=== PATIENT | male | born 1965 | race Caucasian/White ===

== ENCOUNTER 2018-02-23 21:38 | Inpatient (IN) | payer OTHER ==
[2018-02-23] MEDS ORDERED: PANTOPRAZOLE 40 MG/10 ML VIAL IVP STA (23:25)
[2018-02-23] MEDS ORDERED: SODIUM CHLORIDE 0.9% 1,000 ML IV STA (23:25)
[2018-02-23 23:53] LABS: Anisocytosis Moderate; Hypochromasia Marked; MCH 17.4 pg (25.0-35.0); MCHC 25.8 g/dL (31.0-37.0); MCV 67.4 fL (80.0-100.0); Mean Platelet Volume 9.4; Microcytosis Marked; Platelet Count 132 k/uL (150-450); Poikilocytosis Slight; RBC 2.27 m/uL (4.30-5.90); RDW 20.6 % (11.5-15.5); WBC 3.3 k/uL (3.8-10.6)
[2018-02-23 23:59] LABS: HCT 15.3 % (39.0-53.0); HGB 3.9 gm/dL (13.0-17.5)
[2018-02-24 00:04] LABS: ALT 43 U/L (21-72); AST 67 U/L (17-59); Albumin 3.3 g/dL (3.5-5.0); Alkaline Phosphatase 48 U/L (38-126); Amylase 57 U/L (30-110); Anion Gap 7 mmol/L; Blood Urea Nitrogen 13 mg/dL (9-20); Calcium 8.2 mg/dL (8.4-10.2); Carbon Dioxide 23 mmol/L (22-30); Chloride 107 mmol/L (98-107); Glucose 115 mg/dL (74-99); Lipase 298 U/L (23-300); Potassium 4.1 mmol/L (3.5-5.1); Sodium 137 mmol/L (137-145); Total Bilirubin 0.4 mg/dL (0.2-1.3); Total Protein 7.3 g/dL (6.3-8.2)
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
[2018-02-24 00:39] LABS: Basophils # (M) 0.03 k/uL (0-0.2); Eosinophils # (M) 0.03 k/uL (0-0.7); Lymphocytes # (M) 0.92 k/uL (1.0-4.8); Monocytes # (M) 0.26 k/uL (0-1.0); Neutrophils # (M) 2.05 k/uL (1.3-7.7); Neutrophils % (M) 62 %; Nucleated Red Blood Cells 0 /100 WBC (0-0); Total Cells Counted 100
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
[2018-02-24 00:40] LABS: Large Platelets Present; Ovalocytes Present; Tear Drop Cells Present
[2018-02-24 00:48] LABS: INR 1.3 (<1.2); Prothrombin Time 12.4 sec (9.0-12.0)
[2018-02-24] MEDS ORDERED: ONDANSETRON 4 MG/2 ML VIAL IVP PRN (00:57)
[2018-02-24] MEDS ORDERED: NALOXONE 0.4 MG/ML 1 ML VIAL IV PRN (00:57)
[2018-02-24 02:20] LABS: Appearance,Urine Clear (Clear); Bilirubin,Urine Negative (Negative); Blood,Urine Negative (Negative); Color,Urine Colorless; Glucose,Urine (UA) Negative (Negative); Ketones,Urine Negative (Negative); Leukocyte Esterase,Urine Negative (Negative); Nitrite,Urine Negative (Negative); Protein,Urine Negative (Negative); Specific Gravity,Urine 1.003 (1.001-1.035); Urobilinogen,Urine <2.0 mg/dL (<2.0)
[2018-02-24] MEDS: SODIUM CHLORIDE 0.9% 1,000 ML IV SCH ×2 (04:57→17:17)
[2018-02-24 07:46] LABS: Anisocytosis Moderate; Basophils % (A) 0 %; Eosinophils % (A) 1 %; Hypochromasia Marked; Lymphocytes # (A) 0.7 k/uL (1.0-4.8); Lymphocytes % (A) 26 %; MCHC 26.6 g/dL (31.0-37.0); MCV 67.7 fL (80.0-100.0); Mean Platelet Volume 9.5; Microcytosis Marked; Monocytes # (A) 0.2 k/uL (0-1.0); Monocytes % (A) 7 %; Neutrophils # (A) 1.7 k/uL (1.3-7.7); Neutrophils % (A) 62 %; Platelet Count 139 k/uL (150-450); Poikilocytosis Marked; RBC 2.45 m/uL (4.30-5.90); RDW 21.2 % (11.5-15.5); WBC 2.8 k/uL (3.8-10.6)
[2018-02-24 07:51] LABS: HCT 16.6 % (39.0-53.0); HGB 4.4 gm/dL (13.0-17.5)
[2018-02-24] MEDS ORDERED: PANTOPRAZOLE 40 MG/10 ML VIAL IV SCH (09:00)
[2018-02-24] MEDS ORDERED: LORazepam 0.5 MG TAB PO PRN ×2 (12:49→13:59)
[2018-02-24] MEDS ORDERED: MIRTAZAPINE 15 MG TAB PO PRN (13:57)
[2018-02-24] MEDS ORDERED: HYOSCYAMINE SULFATE 0.125 MG TAB PO PRN (13:57)
[2018-02-24] MEDS ORDERED: TRIMETHOBENZAMIDE 300 MG CAP PO PRN (13:57)
[2018-02-24] MEDS ORDERED: cloNIDine HCL 0.1 MG TAB PO PRN (13:57)
[2018-02-24] MEDS ORDERED: LOPERAMIDE 2 MG CAP PO PRN (13:57)
[2018-02-24] MEDS ORDERED: TEMAZEPAM 15 MG CAP PO PRN (13:59)
--- NOTE | 2018-02-24 14:35 | XR ---
EXAMINATION TYPE: XR chest 1V portable DATE OF EXAM: 02/24/2018 COMPARISON: NONE HISTORY: Heart failure. Short of breath TECHNIQUE: Single frontal view of the chest is obtained. FINDINGS: Heart is enlarged. There is no heart failure. Lungs are clear of infiltrate. There is no p leural effusion. There are chest leads. IMPRESSION: Cardiomegaly. No active cardiopulmonary disease.
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
[2018-02-24] MEDS: PANTOPRAZOLE 40 MG/10 ML VIAL IV SCH (21:28)
[2018-02-24] MEDS: TEMAZEPAM 15 MG CAP PO PRN (22:15)
[2018-02-24 22:22] LABS: Anisocytosis Moderate; Basophils % (A) 0 %; Eosinophils # (A) 0.1 k/uL (0-0.7); Eosinophils % (A) 2 %; Hypochromasia Marked; Lymphocytes # (A) 0.9 k/uL (1.0-4.8); Lymphocytes % (A) 26 %; MCH 21.7 pg (25.0-35.0); MCHC 29.8 g/dL (31.0-37.0); Mean Platelet Volume 7.8; Microcytosis Marked; Monocytes # (A) 0.2 k/uL (0-1.0); Monocytes % (A) 7 %; Neutrophils # (A) 2.1 k/uL (1.3-7.7); Neutrophils % (A) 62 %; Poikilocytosis Marked; RBC 3.16 m/uL (4.30-5.90); RDW 21.6 % (11.5-15.5); WBC 3.4 k/uL (3.8-10.6)
[2018-02-24 22:24] LABS: HGB 6.9 gm/dL (13.0-17.5); MCV 72.9 fL (80.0-100.0)
[2018-02-24 22:47] LABS: Poikilocytosis (M) Present; Polychromasia Present; Target Cells Present
[2018-02-25] MEDS: SODIUM CHLORIDE 0.9% 1,000 ML IV SCH (02:42)
[2018-02-25 06:28] LABS: Anisocytosis Moderate; Basophils % (A) 0 %; Eosinophils # (A) 0.1 k/uL (0-0.7); Eosinophils % (A) 2 %; HCT 26.9 % (39.0-53.0); Hypochromasia Marked; Lymphocytes # (A) 0.7 k/uL (1.0-4.8); Lymphocytes % (A) 18 %; MCH 21.5 pg (25.0-35.0); MCHC 29.9 g/dL (31.0-37.0); Mean Platelet Volume 8.7; Microcytosis Marked; Monocytes # (A) 0.4 k/uL (0-1.0); Monocytes % (A) 11 %; Neutrophils # (A) 2.7 k/uL (1.3-7.7); Neutrophils % (A) 67 %; Poikilocytosis Marked; RBC 3.74 m/uL (4.30-5.90); RDW 21.5 % (11.5-15.5)
[2018-02-25 06:30] LABS: ALT 56 U/L (21-72); AST 91 U/L (17-59); Albumin 3.1 g/dL (3.5-5.0); Alkaline Phosphatase 41 U/L (38-126); Anion Gap 8 mmol/L; Calcium 8.4 mg/dL (8.4-10.2); Carbon Dioxide 19 mmol/L (22-30); Chloride 111 mmol/L (98-107); Glucose 121 mg/dL (74-99); Sodium 138 mmol/L (137-145); Total Bilirubin 1.1 mg/dL (0.2-1.3); Total Protein 7.2 g/dL (6.3-8.2)
[2018-02-25 06:34] LABS: Blood Urea Nitrogen 13 mg/dL (9-20); Potassium 4.8 mmol/L (3.5-5.1)
[2018-02-25 06:58] LABS: Platelet Count 32 k/uL (150-450)
[2018-02-25 06:59] LABS: Polychromasia Present
[2018-02-25 07:01] LABS: Tear Drop Cells Present
[2018-02-25 07:02] LABS: Large Platelets Present; Mixed Population RBC Present
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
[2018-02-25] MEDS: NICOTINE 14MG/24HR PATCH TRANSDERM SCH (08:16)
[2018-02-25] MEDS: PANTOPRAZOLE 40 MG/10 ML VIAL IV SCH ×2 (08:17→21:05)
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
[2018-02-25 11:34] LABS: Reticulocyte % 2.3 % (0.5-2.0)
[2018-02-25] MEDS ORDERED: BISACODYL 5 MG TABLET.DR PO STA (14:54)
[2018-02-25 15:00] VITALS: BMI 26.5
[2018-02-25 16:35] LABS: Iron Saturation 6.02 (15.00-50.00); Rheumatoid Factor 10 IU/mL (0-15)
[2018-02-25] MEDS ORDERED: PEG 3350-NA SULF,BICARB,CL/KCL 4,000 ML BOTTLE PO ONE (17:00)
[2018-02-25 17:47] LABS: HIV AB P24 Non-Reactive (Non-Reactive); HIV P24 AG Non-Reactive (Non-Reactive)
--- NOTE | 2018-02-25 18:57 | P.PN ---
Subjective Progress Note Date: 02/25/18 Principal diagnosis: Iron deficiency anemia, melena The patient reports feeling better after receiving blood transfusions. Tolerating diet. No melanotic stool on this admission so far. Objective - Vital Signs Vital signs: Vital Signs Temp 96.6 F L 02/25/18 12:00 Pulse 73 02/25/18 12:00 Resp 18 02/25/18 12:00 BP 121/81 02/25/18 12:00 Pulse Ox 96 02/25/18 12:00 Intake & Output 02/24/18 02/25/18 02/25/18 18:59 06:59 18:59 Intake Total 1340 1670 684 Output Total 1950 3325 900 Balance -610 -1655 -216 Weight 79.1 kg 79.1 kg Intake: Oral 720 740 684 Blood Product 620 930 Rc As-1 Unit 310 [id number] Rc As-1 Unit 310 [id number] Rc As-1 Unit 310 [id number] Rc As-1 Unit 0 310 [id number] Output: Urine 1950 3325 900 Other: Voiding Method Urinal Urinal # Voids 2 - Exam On physical examination, patient appears comfortable in no apparent distress. Vital signs are stable. HEENT: Unremarkable. Conjunctivae pink. Sclerae anicteric. Oral cavity no lesions. NECK: No JVD or lymph node enlargement. CHEST: Clear to auscultation. HEART: Regular rate and rhythm. ABDOMEN: Soft. Bowel sounds are positive. No organomegaly. EXTREMITIES: No pedal edema. SKIN: No rashes. NEUROLOGIC: Alert and oriented x3. No focal deficits. - Labs CBC & Chem 7: 02/25/18 05:31 02/25/18 05:31 Labs: Abnormal Lab Results - Last 24 Hours (Table) 02/24/18 02/24/18 02/25/18 Range/Units 00:21 22:04 05:31 WBC 3.4 L (3.8-10.6) k/uL RBC 3.16 L (4.30-5.90) m/uL Hgb 6.9 L* D (13.0-17.5) gm/dL Hct 23.0 L (39.0-53.0) % MCV 72.9 L D (80.0-100.0) fL MCH 21.7 L (25.0-35.0) pg MCHC 29.8 L (31.0-37.0) g/dL RDW 21.6 H (11.5-15.5) % Plt Count (150-450) k/uL Lymphocytes # 0.9 L (1.0-4.8) k/uL Retic Count (0.5-2.0) % Chloride 111 H (98-107) mmol/L Carbon Dioxide 19 L (22-30) mmol/L Glucose 121 H (74-99) mg/dL Iron (65-175) ug/dL Iron Saturation (15.00-50.00) Ferritin (22.0-322.0) ng/mL AST 91 H (17-59) U/L Albumin 3.1 L (3.5-5.0) g/dL Crossmatch See Detail 02/25/18 02/25/18 02/25/18 Range/Units 05:31 10:35 10:35 WBC (3.8-10.6) k/uL RBC 3.74 L (4.30-5.90) m/uL Hgb 8.0 L (13.0-17.5) gm/dL Hct 26.9 L (39.0-53.0) % MCV 72.0 L (80.0-100.0) fL MCH 21.5 L (25.0-35.0) pg MCHC 29.9 L (31.0-37.0) g/dL RDW 21.5 H (11.5-15.5) % Plt Count 32 L* D (150-450) k/uL Lymphocytes # 0.7 L (1.0-4.8) k/uL Retic Count 2.3 H (0.5-2.0) % Chloride (98-107) mmol/L Carbon Dioxide (22-30) mmol/L Glucose (74-99) mg/dL Iron 24 L (65-175) ug/dL Iron Saturation 6.02 L (15.00-50.00) Ferritin 5.4 L (22.0-322.0) ng/mL AST (17-59) U/L Albumin (3.5-5.0) g/dL Crossmatch Assessment and Plan (1) Anemia Narrative/Plan: Microcytic anemia with iron studies suggestive of a deficiency, this is likely secondary to GI blood loss given the patient's reports of melanotic stool. Less likely hematologic process, sequela of hepatitis C or other etiology. Current Visit: Yes Status: Acute Code(s): D64.9 - ANEMIA, UNSPECIFIED SNOMED Code(s): 192898061 (2) GI bleed Narrative/Plan: Reports of melanotic stools on and off for weeks. Denies any gross blood per rectum. Current Visit: Yes Status: Acute Code(s): K92.2 - GASTROINTESTINAL HEMORRHAGE, UNSPECIFIED SNOMED Code(s): 39225317 (3) History of hepatitis C Narrative/Plan: Treatment obi hepatitis C. Currently undergoing rehabilitation therapy for active drug use. Current Visit: Yes Status: Acute Code(s): Z86.19 - PERSONAL HISTORY OF OTHER INFECTIOUS AND PARASITIC DISEASES SNOMED Code(s): 98552687224508 Plan: Supportive care -Liquid diet, nothing by mouth after midnight EGD and colonoscopy tomorrow Iron supplementation Monitor hemoglobin and hematocrit and transfuse as needed Outpatient follow-up for evaluation and treatment of hepatitis C Thank you for allowing us to participate in the care of this patient we'll continue to follow
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
[2018-02-25] MEDS: TEMAZEPAM 15 MG CAP PO PRN (22:32)
[2018-02-26 06:18] LABS: Anisocytosis Moderate; Basophils % (A) 1 %; Eosinophils # (A) 0.1 k/uL (0-0.7); Eosinophils % (A) 1 %; HCT 28.8 % (39.0-53.0); HGB 8.3 gm/dL (13.0-17.5); Hypochromasia Marked; Lymphocytes # (A) 0.8 k/uL (1.0-4.8); Lymphocytes % (A) 21 %; MCH 21.4 pg (25.0-35.0); MCHC 28.9 g/dL (31.0-37.0); Mean Platelet Volume 9.4; Microcytosis Marked; Monocytes # (A) 0.3 k/uL (0-1.0); Monocytes % (A) 7 %; Neutrophils # (A) 2.5 k/uL (1.3-7.7); Neutrophils % (A) 67 %; Poikilocytosis Marked; RBC 3.88 m/uL (4.30-5.90); RDW 22.1 % (11.5-15.5); WBC 3.7 k/uL (3.8-10.6)
[2018-02-26 06:19] LABS: Platelet Count 123 k/uL (150-450)
[2018-02-26 06:21] LABS: Anion Gap 10 mmol/L; Blood Urea Nitrogen 10 mg/dL (9-20); Calcium 8.5 mg/dL (8.4-10.2); Carbon Dioxide 19 mmol/L (22-30); Chloride 111 mmol/L (98-107); Glucose 92 mg/dL (74-99); Potassium 4.3 mmol/L (3.5-5.1); Sodium 140 mmol/L (137-145)
[2018-02-26 06:32] LABS: Ovalocytes Present; Target Cells Present
[2018-02-26] MEDS: NICOTINE 14MG/24HR PATCH TRANSDERM SCH (08:49)
[2018-02-26] MEDS: PANTOPRAZOLE 40 MG/10 ML VIAL IV SCH (08:50)
[2018-02-26 09:05] VITALS: RESP 17
--- NOTE | 2018-02-26 12:43 | P.PN ---
Subjective Progress Note Date: 02/26/18 Principal diagnosis: Microcytic, hypochromic anemia Pt seen in f/u, he is awaiting endoscopy procedures this AM. He denies nausea, bleeding or pain. Objective - Vital Signs Vital signs: Vital Signs Temp 97 F L 02/26/18 08:20 Pulse 80 02/26/18 08:20 Resp 17 02/26/18 08:20 BP 125/83 02/26/18 08:20 Pulse Ox 97 02/26/18 08:20 Intake & Output 02/25/18 02/26/18 02/26/18 18:59 06:59 18:59 Intake Total 684 Output Total 900 Balance -216 Weight 79.1 kg 76.2 kg Intake: Oral 684 Output: Urine 900 Other: Voiding Method Urinal Toilet # Voids 1 # Bowel Movements 1 - Exam WDWN, laying in bed, NAD, pt is independently mobile, respirations even and unlabored, BS +, no abd distension, lower extremity swelling - Labs CBC & Chem 7: 02/26/18 05:45 02/26/18 05:45 Labs: Abnormal Lab Results - Last 24 Hours (Table) 02/25/18 02/25/18 02/26/18 Range/Units 10:35 10:35 05:45 WBC 3.7 L (3.8-10.6) k/uL RBC 3.88 L (4.30-5.90) m/uL Hgb 8.3 L (13.0-17.5) gm/dL Hct 28.8 L (39.0-53.0) % MCV 74.0 L (80.0-100.0) fL MCH 21.4 L (25.0-35.0) pg MCHC 28.9 L (31.0-37.0) g/dL RDW 22.1 H (11.5-15.5) % Plt Count 123 L D (150-450) k/uL Lymphocytes # 0.8 L (1.0-4.8) k/uL Chloride (98-107) mmol/L Carbon Dioxide (22-30) mmol/L Iron 24 L (65-175) ug/dL Iron Saturation 6.02 L (15.00-50.00) Ferritin 5.4 L (22.0-322.0) ng/mL RBC Folate 1,633 H (280 - 791) ng/mL 02/26/18 Range/Units 05:45 WBC (3.8-10.6) k/uL RBC (4.30-5.90) m/uL Hgb (13.0-17.5) gm/dL Hct (39.0-53.0) % MCV (80.0-100.0) fL MCH (25.0-35.0) pg MCHC (31.0-37.0) g/dL RDW (11.5-15.5) % Plt Count (150-450) k/uL Lymphocytes # (1.0-4.8) k/uL Chloride 111 H (98-107) mmol/L Carbon Dioxide 19 L (22-30) mmol/L Iron (65-175) ug/dL Iron Saturation (15.00-50.00) Ferritin (22.0-322.0) ng/mL RBC Folate (280 - 791) ng/mL Assessment and Plan (1) Hypochromic-microcytic anemia Narrative/Plan: Parenteral iron supplementation daily while inpatient. PO iron Erx to [facility] pharmacy for outpatient. Pt instructed to establish with a PCP as Hematology will only be managing blood problems. CBC should be followed every 1-2 weeks to ensure recovery of Hgb. Iron studies need to be reevaluated in 1 mo to evaluate adequacy of PO supplementation. Endoscopy today, pending results Current Visit: Yes Status: Acute Priority: High Code(s): D50.9 - IRON DEFICIENCY ANEMIA, UNSPECIFIED SNOMED Code(s): 15110414 (2) Thrombocytopenia Narrative/Plan: [place] dilutional secondary to massive PRBC transfusions, platelets recovered today Current Visit: Yes Status: Acute Priority: Medium Code(s): D69.6 - THROMBOCYTOPENIA, UNSPECIFIED SNOMED Code(s): 002968643 Plan: Reviewed with pt other lab results: autoimmune labs negative, negative HIV status. Pt states he does not share needles and is not currently sexually active.
[2018-02-26] MEDS ORDERED: SODIUM FERRIC GLUCONAT-SUCROSE 125 MG in SODIUM CHLORIDE 0.9% 100 ML IVPB SCH (13:00)
[2018-02-26] MEDS ORDERED: IV FLUID CONTINUATION 300 ML IV ONE (13:00)
--- NOTE | 2018-02-26 14:23 | P.PCN ---
Date of Procedure: 02/26/18 Description of Procedure: Brief history: Patient is a pleasant scheduled for an inpatient upper endoscopy as well as colonoscopy as a part of evaluation of iron deficiency anemia. Procedure performed: Esophagogastroduodenoscopy Colonoscopy Preoperative diagnosis: Regular Z line at 42 cm, gastritis which was biopsied, duodenal biopsies through, no source of GI bleeding in the upper or lower, internal hemorrhoids, fair prep colonoscopy. Anesthesia: MAC Procedure: After informed consent was obtained from the patient was brought into the endoscopy unit and IV sedation was administered by anesthesia under continuous monitoring. Initially upper endoscopy was done. The Olympus GF 180 video endoscope was inserted inserted into the mouth and esophagus intubated without any difficulty and was gradually advanced into the stomach and duodenum and carefully examined. The bulb and second part of the duodenum appeared normal with biopsies taken to rule out celiac sprue. The scope was then withdrawn into the stomach adequately insufflated with air and upon careful examination the antrum and body, cardia and fundus appeared grossly normal with no pathology to explain anemia or evidence of prior GI bleed. Gastritis was noted in the antrum and body and biopsies were taken. The scope was then withdrawn into the esophagus. The GE junction was located at 42 cm to the incisors. It appeared regular with no erythema erosions or ulcerations. Rest of the esophagus appeared normal. Patient tolerated the procedure well. At this time the patient continued to remain sedation. Initial digital rectal examination was normal. Olympus CF 190 video colonoscope was then inserted into the rectum and gradually advanced to the cecum without any difficulty. Careful examination was performed as the scope was gradually being withdrawn. The prep was fair. The cecum, ascending colon, transverse colon, descending colon, sigmoid colon and rectum appeared normal with no evidence of GI bleed or pathology to explain anemia. No lesions were noted in the rectum in the rectum with mild hemorrhoids noted on withdrawal. Patient tolerated the procedure well. Impression: 1. No pathology to explain anemia on upper or lower endoscopic evaluation of GI tract 2. Gastritis which was biopsied, and duodenal biopsies to rule out sprue were taken. 3. Fair prep on colonoscopy. 4. Internal hemorrhoids. Recommendations: Findings of this examination were discussed with the patient. Can consider inpatient endoscopy versus outpatient depending on stability of hemoglobin after transfusion. Okay to restart diet. Would repeat the colonoscopy in one year's time given fair prep.
[2018-02-26 16:55] VITALS: BP 133/78; PULSE 69; TEMP 97.3
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
== END 2018-02-26 17:38 | disposition home or self-care (01) | DRG 812 ==
LOC: EC 21:38 → 6SEL 02-24 00:58
PROVIDERS: ADMIT Internal Medicine; ATTEND Internal Medicine
PROC: 30233N1 Transfusion of Nonautologous Red Blood Cells into Peripheral Vein, Percutaneous Approach (ICD-10-PCS; 2018-02-24)
PROC: 0DB68ZX Excision of Stomach, Via Natural or Artificial Opening Endoscopic, Diagnostic (ICD-10-PCS; 2018-02-26)
PROC: 0DJD8ZZ Inspection of Lower Intestinal Tract, Via Natural or Artificial Opening Endoscopic (ICD-10-PCS; 2018-02-26)
PROC: 0DB98ZX Excision of Duodenum, Via Natural or Artificial Opening Endoscopic, Diagnostic (ICD-10-PCS; principal; 2018-02-26 08:35)
PROC: 0DB78ZX Excision of Stomach, Pylorus, Via Natural or Artificial Opening Endoscopic, Diagnostic (ICD-10-PCS; 2018-02-26 08:35)
DX: D62 Acute posthemorrhagic anemia (principal); K92.2 Gastrointestinal hemorrhage, unspecified; D61.818 Other pancytopenia; B19.20 Unspecified viral hepatitis C without hepatic coma; F11.10 Opioid abuse, uncomplicated; F14.10 Cocaine abuse, uncomplicated; F17.210 Nicotine dependence, cigarettes, uncomplicated; F32.9 Major depressive disorder, single episode, unspecified; F41.9 Anxiety disorder, unspecified; G40.909 Epilepsy, unspecified, not intractable, without status epilepticus; K21.9 Gastro-esophageal reflux disease without esophagitis; K29.70 Gastritis, unspecified, without bleeding; K64.8 Other hemorrhoids; K74.60 Unspecified cirrhosis of liver; M19.90 Unspecified osteoarthritis, unspecified site; R16.1 Splenomegaly, not elsewhere classified; F10.10 Alcohol abuse, uncomplicated; Z90.5 Acquired absence of kidney; Z86.14 Personal history of Methicillin resistant Staphylococcus aureus infection; Z90.49 Acquired absence of other specified parts of digestive tract; Z98.1 Arthrodesis status; Z79.899 Other long term (current) drug therapy; Z82.49 Family history of ischemic heart disease and other diseases of the circulatory system
CPT/HCPCS: 36415; 43239; 45378; 71045; 74019; 80048; 80053; 81003; 82150; 82272; 82728; 82747; 83540; 83550; 83605; 83690; 85025; 85045; 85610; 86038; 86431; 86850; 86900; 86901; 86920; 87390; 88305; 96361; 96374; 99285